=== PATIENT | female | born 1965 | race Caucasian/White ===

== ENCOUNTER 2024-01-05 06:33 | Day surgery (SDC) | payer OTHER, SELFPAY ==
[2023-12-25 09:01] VITALS: BMI 31.9
[2023-12-25 10:23] LABS: Hematocrit 37.8 % (37.0-47.0); Hemoglobin 13.2 g/dL (12.0-16.0); Mean Corp Hgb Conc. 34.9 g/dL (33.0-37.0); Mean Corpuscular Hgb 30.1 pg (27.0-31.0); Mean Corpuscular Volume 86.3 fL (81.0-99.0); Mean Platelet Volume 11.5 fL (7.4-10.4); Platelet Count 281 10^3/uL (130-400); Red Blood Cell Count 4.38 10^6/uL (4.20-5.40); White Blood Cell Count 9.3 10^3/uL (4.8-10.8)
[2023-12-25 10:46] LABS: Blood Urea Nitrogen 12 mg/dl (7-17); Calcium 9.7 mg/dl (8.4-10.2); Carbon Dioxide 26 mmol/L (22-30); Chloride 102 mmol/L (98-107); Estimated Creatinine Clearance 101 ml/min; Glucose 130 mg/dl (70-99); Potassium 4.4 mmol/L (3.5-5.1); Sodium 140 mmol/L (135-145); eGFR > 60.00
[2024-01-05] VITALS (17 sets, daily range): BP systolic 96–136; BP diastolic 71–90; BMI 31.9
--- NOTE | 2024-01-05 07:24 | HP.FOC2 ---
Focused History & Physical
Chief Complaint
HPI:
Chief Complaint: Dysphagia, GERD
HPI / Indication for Planned Procedure: Patient is a 58-year-old female recently seen in outpatient surgical evaluation secondary to symptomatic hiatal hernia. She has a longstanding history of having followed her hiatal hernia expectantly over the
years. Progressive dysphagia recently particularly with more solid foods, early satiety, postprandial fullness and epigastric substernal chest pain with radiation to the left scapular region. Cardiac evaluation unremarkable. CT chest abdomen has
confirmed the presence of a large type III paraesophageal hernia with approximately 80% of the stomach within the chest and typical organoaxial positioning. Upper GI fluoroscopy demonstrating normal esophageal mucosa without mass compression or
thickening. No reflux. Mild delayed gastric emptying secondary to large hiatal hernia with intrathoracic stomach.
Relevant Past Medical History: Other (Neuropathy, aoy-axvlcdf-axfokldxh diabetes mellitus, arthritis)
Relevant Social History: Negative
Relevant Family History: Negative
Relevant Past Surgical History: Positive for ( x 2 cholecystectomy, left foot surgery, tonsils)
Review of Systems
Review of Pertinent Systems: All Systems Negative
Medication
See Medication form for detailed medications: Yes
Medication List (including Herbals & OTC):
atorvastatin 10 mg tablet (Lipitor) 10 mg PO DAILY 12/30/23
celecoxib 200 mg capsule (Celebrex) 200 mg PO HS 12/30/23
duloxetine 30 mg capsule,delayed release (Cymbalta) 30 mg PO HS 12/30/23
glipizide 5 mg tablet 5 mg PO BID 12/30/23
lisinopril 2.5 mg tablet 2.5 mg PO DAILY 12/30/23
metformin 1,000 mg tablet 1,000 mg PO BID 12/30/23
omeprazole 20 mg capsule,delayed release 20 mg PO DAILY 12/30/23
Medications Reviewed: Yes
Allergies and Reactions
Patient has Allergies: Yes
Noted Allergies and Reactions:
Allergy/AdvReac Type Severity Reaction Status Date / Time
aspirin Allergy Hives, Verified 04/02/24 10:48
Swelling
Penicillins Allergy Hives, Verified 12/30/23 10:48
Swelling
Sulfa (Sulfonamide Allergy Hives, Verified 12/30/23 10:48
Antibiotics) Swelling
hydromorphone [From Dilaudid] AdvReac Severe Verified 12/30/23 11:08
headache
morphine AdvReac Uncontrollable Verified 12/30/23 11:08
Crying,
Emotional
Pertinent Physical Exam
All Other Systems: Negative
Head/Neck: Normal
Lungs: Normal
Heart: Normal
Abdomen: Normal
Extremities: Normal
Neurological: Normal
Diagnosis / Assessment
58-year-old female presenting for scheduled operative correction symptomatic, large type III paraesophageal hernia
Plan / Procedure
Robotic assisted laparoscopic paraesophageal hernia repair with fundoplication, possible resorbable mesh and intraoperative EGD
Anesthesia/Sedation to be done by Anesthesia Provider: Yes
[2024-01-05 08:59] LABS: Glucose - Point of Care 137 mg/dl (70-99)
[2024-01-05] MEDS: NORMOSOL-R 1000 IV (08:59)
--- NOTE | 2024-01-05 10:44 | W.SUR.PREOP ---
Pre-Operative Surgical Note
-
I have examined this patient prior to the performance of the scheduled procedure.
The patient's condition is unchanged from the time of the current History and
Physical and the patient is able to undergo the scheduled procedure.
[2024-01-05 10:54] LABS: Glucose - Point of Care 89 mg/dl (70-99)
[2024-01-05 13:49] LABS: Glucose - Point of Care 183 mg/dl (70-99)
[2024-01-05 15:58] LABS: Glucose - Point of Care 225 mg/dl (70-99)
[2024-01-05 17:19] LABS: Glucose - Point of Care 208 mg/dl (70-99)
--- NOTE | 2024-01-05 17:23 | W.IMMPOSTOP ---
Addendum entered and electronically signed by Kenneth Crow MD 01/12/24 15:51:
#[id number]
Original Note:
Surgical Immed Post Op Note
-
Primary Surgeon: Mignon
Assisting Surgeon: BASILIO Iraheta
Pre-op Diagnosis: Symptomatic large type III paraesophageal hernia
Post-op Diagnosis: Giant type IV paraesophageal hernia
Procedure Performed: Robotic assisted laparoscopic repair paraesophageal hernia with fundoplication; intraoperative EGD
Anesthesia Type: GETA +1% lidocaine with epi/0.25% Marcaine
Specimen / Cultures: None
Estimated Blood Loss: 20 mL
Complications: None immediate
Operative Findings: Large type IV paraesophageal hernia containing entire stomach within the intrathoracic space predominantly in the left chest. Large posterior fat pad with pancreatic capsule immediately adjacent. IVC immediately adjacent to the
border of the right karen required mobilization for crural closure. Hiatal hernia sac and contents all completely reduced. Anterior hernia sac excised and discarded. Extensive mediastinal esophageal mobilization circumferentially up to the level
of the right mainstem bronchus and beyond pulmonary veins. Right/posterior vagus clearly identified and preserved. Left/anterior vagus not definitively identified. Overall defect closed with 6 interrupted 0 silk stitches posteriorly, 2 right
anterior lateral 0 silk stitches; did not utilize pledgets or mesh given proximity of IVC to right sided crural closure. Toupee fundoplication. Crural closure and wrap nicely accommodated 54 [place] bougie. Intraoperative EGD confirming
well-formed toupee fundoplication, no iatrogenic injury from esophageal mobilization, chronic gastritis and nodularity from chronicity of hiatal hernia and organoaxial volvulus of the stomach. No active ulcerations or bleeding though.
[2024-01-05] MEDS: SUBLIMAZE 25 MCG IV ×2 (18:01→18:27)
[2024-01-05] MEDS: NOVOLOG vial 1 UNITS SC (18:11)
[2024-01-05] MEDS: SUBLIMAZE 50 MCG IV (18:18)
--- NOTE | 2024-01-05 19:30 | PTCARENOTE ---
Addendum entered by Lolita Hansen RN 01/06/24 05:52:
ivf infusing as ordered. brendon draingig,
Original Note:
Pt arrived from OR. Pt aaox3, cooperative, drowsy at times. c/o pain and mild nausuea.mrf
--- NOTE | 2024-01-05 19:30 | PTCARENOTE ---
Ot arrived from PACU
[2024-01-05] MEDS: NSS 1000 IV (20:47)
[2024-01-05 21:37] LABS: Glucose - Point of Care 186 mg/dl (70-99)
[2024-01-05] MEDS: COMPAZINE 5 MG IV (22:05)
[2024-01-05] MEDS: DILAUDID 0.5 MG IV (22:06)
[2024-01-05] MEDS: CYMBALTA DELAYED RELEASE 30 MG PO (22:35)
[2024-01-06 00:15] LABS: Glucose - Point of Care 154 mg/dl (70-99)
[2024-01-06] MEDS: ZOFRAN IV (02:08)
[2024-01-06 03:35] VITALS: BP 136/84
[2024-01-06] MEDS: DILAUDID 0.5 MG IV (04:44)
[2024-01-06] MEDS: ZOFRAN 4 MG IV ×4 (04:44→23:00)
[2024-01-06 05:53] LABS: Hematocrit 34.8 % (37.0-47.0); Hemoglobin 12.2 g/dL (12.0-16.0); Mean Corp Hgb Conc. 35.1 g/dL (33.0-37.0); Mean Corpuscular Hgb 30.3 pg (27.0-31.0); Mean Corpuscular Volume 86.4 fL (81.0-99.0); Mean Platelet Volume 11.2 fL (7.4-10.4); Platelet Count 237 10^3/uL (130-400); Red Blood Cell Count 4.03 10^6/uL (4.20-5.40); Red Cell Dist. Width 13.3 % (11.5-14.5); White Blood Cell Count 12.6 10^3/uL (4.8-10.8)
[2024-01-06 06:10] LABS: Glucose - Point of Care 124 mg/dl (70-99)
[2024-01-06 06:26] LABS: Blood Urea Nitrogen 11 mg/dl (7-17); Calcium 8.3 mg/dl (8.4-10.2); Carbon Dioxide 25 mmol/L (22-30); Chloride 102 mmol/L (98-107); Estimated Creatinine Clearance 101 ml/min; Glucose 130 mg/dl (70-99); Potassium 3.9 mmol/L (3.5-5.1); Sodium 136 mmol/L (135-145); eGFR > 60.00
[2024-01-06] MEDS: NSS 1000 IV ×3 (06:28→22:55)
[2024-01-06 07:25] VITALS: BP 126/80
[2024-01-06] MEDS: NSS (PRESERVATIVE FREE) 10 ML IV (07:25)
[2024-01-06] MEDS: PROTONIX IV 40 MG IV (07:25)
--- NOTE | 2024-01-06 08:31 | W.PN.GS2 ---
Today's Communication / Plan
-
-- Trial of clears
-- Pain control: Tylenol, Toradol, IV Dilaudid PRN, would transition to PO depending on dietary tolerance
-- Home BP and statin ordered, DM meds on hold pending dietary tolerance, ISS
-- OOB/ambulate, needs IS
Assessment / Plan
-
Patient is a 58 yo F POD#1 s/p RAL PEH repair with Toupet fundoplication and intra-op EGD
Recovering well overall. No postoperative concerns.
-- Trial of clears
-- Pain control: Tylenol, Toradol, IV Dilaudid PRN, would transition to PO depending on dietary tolerance
-- Maintain IVF
-- Home BP and statin ordered, DM meds on hold pending dietary tolerance, ISS
-- Lovenox for DVT
-- PPI ordered for GI
-- OOB/ambulate, needs IS
Subjective Data
-
Date of Service: January 06, 2024
Reports lower abdominal bloating and LEFT shoulder discomfort. Pain overall well-controlled with medications. Reports nausea, no regurgitation or vomiting, tolerating some ice chips. No dizziness or lightheadedness. No fevers or chills. Minimal
ambulation. Voiding.
Objective Data
-
Intake and Output
01/05/24 01/06/24 01/07/24
06:59 06:59 06:59
Intake Total 1320 / 1320
Output Total 955 / 955
Balance 365 / 365
Intake:
Oral fluids 120 / 120
IV fluids (Total) 1200 / 1200
Output:
Drain Output (Total) 5 / 5
Left David-Back 5 /
Urine, Marroquin 950 / 950
Vital Signs
Temp Pulse Resp BP Pulse Ox
98.3 F 105 16 136/84 94
01/06/24 03:35 04/09/24 03:35 01/06/24 03:35 01/06/24 03:35 01/06/24 03:35
Lab Results
01/06/24 05:29
01/06/24 05:29
Calcium 8.3 mg/dl (8.4-10.2) L 01/06/24 05:29
Physical Exam
-
Gen: NAD
Abd: soft, mild tenderness, ND/obese, non-peritoneal, incisions c/d/i - no erythema, ecchymosis or drainage, LANDON minimal serosang
--- NOTE | 2024-01-06 10:26 | CM ---
CM following re: discharge planning.
Reviewed pt's chart, met with pt.
Pt is a 58 year old female, admitted with primary dx of POD#1 s/p RAL PEH repair with Toupet fundoplication and intra-op EGD. Pt reports she is doing much better.
Pt reports she lives with in a 2SH, 2 steps to enter, has 2 supportive children. Pt described herself as independent in all areas [employer],drives, works. No DME, VN or SNF history.
PCP: Sherin Jeffery
Pharmacy: [facility]
D/C plan: home with anticipated no needs. to transport at discharge.
CM will follow with discharge plan updates as hospitalization progresses
[2024-01-06 11:07] LABS: Glucose - Point of Care 132 mg/dl (70-99)
[2024-01-06 11:08] VITALS: BP 137/90
--- NOTE | 2024-01-06 11:34 | PTCARENOTE ---
Patient voided 150mls clear dark yellow urine in bathroom.
--- NOTE | 2024-01-06 14:17 | W.PN.SURGUPD ---
Surgical Update
Surgical Update
pt seen and examined
post op epigastric, LUQ and left scapular pain but manageable
no nausea
AF tachycardia 90-110s noted post op
ABD: soft, ND, mild TTP at incisions, no R/R/G
LANDON with light SSF
reviewed with pt operation in detail
overall expected initial post op course
EKG confirms sinus tachycardia - mediastinal dissection well into chest
clear liquid diet
multimodal nonnarcotic pain medication options
zofran ATC x 36hr post op
ambulate
[2024-01-06] MEDS: OFIRMEV 100 IV (14:23)
[2024-01-06 15:05] VITALS: BP 138/85
[2024-01-06] MEDS: TORADOL 10 MG IV ×2 (15:09→22:51)
[2024-01-06 17:08] LABS: Glucose - Point of Care 137 mg/dl (70-99)
[2024-01-06] MEDS: LOVENOX 40 MG SC (17:11)
[2024-01-06 19:00] VITALS: BP 130/76
[2024-01-06] MEDS: CYMBALTA DELAYED RELEASE 30 MG PO (21:07)
[2024-01-06 23:14] VITALS: BP 141/79
[2024-01-07 04:58] LABS: Hematocrit 32.7 % (37.0-47.0); Mean Corp Hgb Conc. 33.6 g/dL (33.0-37.0); Mean Corpuscular Volume 89.1 fL (81.0-99.0); Mean Platelet Volume 11.1 fL (7.4-10.4); Platelet Count 199 10^3/uL (130-400); Red Blood Cell Count 3.67 10^6/uL (4.20-5.40); Red Cell Dist. Width 13.1 % (11.5-14.5); White Blood Cell Count 9.9 10^3/uL (4.8-10.8)
[2024-01-07] MEDS: ZOFRAN IV (05:08)
[2024-01-07 05:20] LABS: Blood Urea Nitrogen 7 mg/dl (7-17); Calcium 8.2 mg/dl (8.4-10.2); Carbon Dioxide 24 mmol/L (22-30); Chloride 107 mmol/L (98-107); Estimated Creatinine Clearance 101 ml/min; Glucose 126 mg/dl (70-99); Potassium 3.9 mmol/L (3.5-5.1); Sodium 135 mmol/L (135-145); eGFR > 60.00
[2024-01-07] MEDS: TORADOL 10 MG IV (06:43)
[2024-01-07] MEDS: COMPAZINE 5 MG IV (06:48)
[2024-01-07 07:05] VITALS: BP 137/82
--- NOTE | 2024-01-07 07:41 | W.PN.GS2 ---
Today's Communication / Plan
-
`
Assessment / Plan
-
Patient is a 58 yo F POD#2 s/p RAL PEH repair with Toupet fundoplication and intra-op EGD
AF - low grade sinus tachy -stable
doing well post op
Plan: full liquid diet
stop IVFs
Pain control: PO Tylenol, IV Toradol,
Home BP and statin ordered, DM meds on hold pending dietary tolerance, ISS
Lovenox for DVT
PPI ordered for GI
OOB/ambulate, needs IS
dispo possible d/c in PM vs tomorrow pending improvement in mild nausea and PO intake
LANDON will be removed prior to d/c
Subjective Data
-
Date of Service: January 07, 2024
pt seen and examined
darius clears
+flatus, no BM
post op pain controlled
LUNDY this AM - taking Ofirmev and coffee
mild nausea at times, no dry heaves, no vomiting
Objective Data
-
Intake and Output
01/06/24 01/07/24 01/08/24
06:59 06:59 06:59
Intake Total 1320 / 1320 3100 / 3100
Output Total 955 / 955 175 / 175
Balance 365 / 365 2925 / 2925
Intake:
Oral fluids 120 / 120 600 / 600
IV fluids (Total) 1200 / 1200 2400 / 2400
IV piggybacks 100 / 100
Output:
Drain Output (Total)
Left David-Back
Urine, Marroquin 950 / 950
Urine, Voided 150 / 150
Other:
Number of approximated MODERATE 3
amounts of urine
Vital Signs
Temp Pulse Resp BP Pulse Ox
98.2 F 100 16 141/79 92
01/06/24 23:14 01/06/24 23:14 01/06/24 23:14 01/06/24 23:14 01/06/24 23:14
Lab Results
01/07/24 04:34
01/07/24 04:34
Calcium 8.2 mg/dl (8.4-10.2) L 01/07/24 04:34
Physical Exam
-
NAD AAOx3
ABD: soft, ND, mild TTP at incision sites
incisions with glue dressings
LANDON with light SSF
[2024-01-07] MEDS: ZESTRIL 2.5 MG PO (08:27)
[2024-01-07] MEDS: PROTONIX IV 40 MG IV (08:27)
[2024-01-07] MEDS: LIPITOR 10 MG PO (08:27)
[2024-01-07] MEDS: NSS (PRESERVATIVE FREE) 10 ML IV (08:28)
[2024-01-07 08:39] LABS: Glucose - Point of Care 197 mg/dl (70-99)
[2024-01-07 10:07] VITALS: BP 149/85
[2024-01-07 11:42] LABS: Glucose - Point of Care 140 mg/dl (70-99)
--- NOTE | 2024-01-07 14:02 | W.PN.SURGUPD ---
Surgical Update
Surgical Update
pt doing well
darius fulls
feels comfortable with d/c home
LANDON removed
d/c instructions reviewed
scripts sent in
--- NOTE | 2024-01-07 14:03 | W.DS.TRANS ---
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
-
Discharge Instructions:
Sleep Apnea Risk Low
Discharge Diagnosis/Procedures Paraesophageal hernia. Robotic assisted
laparoscopic repair paraesophageal hernia with
toupee fundoplication
Additional Diets Continue full liquid diet for today. Over the
next 1 to 2 days advance to post fundoplication
diet as per dietary handout provided prior to
surgery. Take care to continue with smaller
portion sizes and utilize supplements. Avoid
carbonation and drinking through straws. Take
time to chew and swallow food with a bit smaller
bite sizes.
Activity No strenuous activity
Additional Activity No lifting over 15 pounds
Driving Restrictions No driving 3 to 4 days or if using narcotics
Bathing Restrictions OK to Shower
Wound Care Glue at surgical sites typically peels off in 2
to 3 weeks
Instructions:
Stand-Alone Forms:
Changes to Home Medications: No
Discharge Medications:
DC Medications w/original date entered in [employer]
atorvastatin 10 mg tablet (Lipitor) 10 mg PO DAILY 12/30/23
celecoxib 200 mg capsule (Celebrex) 200 mg PO HS 12/30/23
duloxetine 30 mg capsule,delayed release (Cymbalta) 30 mg PO HS 12/30/23
glipizide 5 mg tablet 5 mg PO BID 12/30/23
lisinopril 2.5 mg tablet 2.5 mg PO DAILY 12/30/23
metformin 1,000 mg tablet 1,000 mg PO BID 12/30/23
omeprazole 20 mg capsule,delayed release 20 mg PO DAILY 12/30/23
vitamin B12 0.5 mg-folic acid 1 mg tablet 1 tab PO DAILY 01/05/24
acetaminophen 325 mg tablet 650 mg (2 x 325 mg) PO Q4HPRN PRN mild pain #1 tab 01/07/24
ondansetron 4 mg disintegrating tablet 4 mg PO Q8HPRN PRN nausea/vomiting #14 tabs 01/07/24
tramadol 50 mg tablet 25 - 50 mg (0.5 - 1 x 50 mg) PO Q6HPRN PRN severe pain/breakthrough pain #7 tabs 01/07/24
Home Medication Changes
Pending Results: No
[2024-01-07] MEDS: TYLENOL ORAL SOLUTION 650 MG PO (14:14)
[2024-01-07] MEDS: ZOFRAN 4 MG IV (14:14)
[2024-01-07 14:50] VITALS: BP 134/82
--- NOTE | 2024-01-07 15:12 | CM ---
Patient has been medically cleared for discharge to home with no additional skilled services. Patient has arranged for transport home.
--- NOTE | 2024-01-07 15:58 | W.DCSUMMARY ---
Discharge Summary
Discharge Data
Date of Admission: 01/05/24
Date of Discharge: 01/07/24
-
Pending Results: No
Hospital Course
Patient is a 58-year-old female with a giant type III/type IV paraesophageal hernia who presented on for scheduled operative correction. She underwent a robotic assisted laparoscopic repair paraesophageal hernia with fundoplication with
intraoperative EGD. See operative report for full details. Operative findings confirmed the presence of a large type IV paraesophageal hernia containing entire stomach, large posterior fat pad and likely pancreatic capsule immediately approaching
the fascial defect.
She tolerated procedure well was transferred to the postoperative surgical floors for monitoring. Postoperative day #1 she had some low-grade sinus tachycardia but adequate pain control, mild reactive leukocytosis. She was started on clear liquids
for comfort which she tolerated. Mild nausea was managed with Zofran ATC. On postoperative day 2 her sinus tachycardia was improving, increased ability to ambulate, voiding, passing flatus and tolerated full liquids. She was deemed stable for
discharge with outpatient surgical follow-up with myself. Her surgical LANDON was removed prior to discharge.
Discharge Plan
-
Patient Disposition: Home (Routine Discharge)
Discharge Diagnosis/Procedures: Paraesophageal hernia. Robotic assisted laparoscopic repair paraesophageal hernia with toupee fundoplication
Condition: Good
Additional Diets: Continue full liquid diet for today. Over the next 1 to 2 days advance to post fundoplication diet as per dietary handout provided prior to surgery. Take care to continue with smaller portion sizes and utilize supplements. Avoid
carbonation and drinking through straws. Take time to chew and swallow food with a bit smaller bite sizes.
Activity: No strenuous activity
Additional Activity: No lifting over 15 pounds
Driving Restrictions: No driving 3 to 4 days or if using narcotics
Bathing Restrictions: OK to Shower
Wound Care: Glue at surgical sites typically peels off in 2 to 3 weeks
Activity Restrictions/Additional Instructions:
Call if fever >101 �F, worsening abdominal pains, persistent nausea with vomiting, trouble swallowing, any medical concerns or questions
Referrals:
Kenneth Crow MD [Active] - in two weeks
Additional Discharge Medication Instructions: monitor accu checks as home, resume diabetes medications as diet intake increases
Prescriptions:
New
acetaminophen [acetaminophen] 325 mg tablet
650 mg PO Q4HPRN PRN (Reason: mild pain) Qty: 1 0RF
tramadol 50 mg tablet
25 - 50 mg PO Q6HPRN PRN (Reason: severe pain/breakthrough pain) Qty: 7 0RF
ondansetron 4 mg tablet,disintegrating
4 mg PO Q8HPRN PRN (Reason: nausea/vomiting) Qty: 14 0RF
Continued
celecoxib [Celebrex] 200 mg Capsule
200 mg PO HS
atorvastatin [Lipitor] 10 mg Tablet
10 mg PO DAILY
metformin 1,000 mg Tablet
1,000 mg PO BID
omeprazole 20 mg Capsule,Delayed Release(Dr/Ec)
20 mg PO DAILY
lisinopril 2.5 mg Tablet
2.5 mg PO DAILY
glipizide 5 mg Tablet
5 mg PO BID
duloxetine [Cymbalta] 30 mg Capsule,Delayed Release(Dr/Ec)
30 mg PO HS
vitamin [id number] acid 0.5-1 mg Tablet
1 tab PO DAILY
Discharge Orders:
Discharge Patient (As Directed); Ordered 01/07/24
Ordered By: Kenneth Crow
Discharge Date and Time
Print Language: SPANISH
== END 2024-01-07 16:15 | disposition home or self-care (01) ==
LOC: SDS 06:33
PROVIDERS: ATTENDING PHYSICIAN Surgery; FAMILY PHYSICIAN Family Medicine; OTHER PHYSICIAN Internal Medicine Interventional Cardiology
DX: K44.9 Diaphragmatic hernia without obstruction or gangrene (principal); E11.40 Type 2 diabetes mellitus with diabetic neuropathy, unspecified
CPT/HCPCS: 43281; 36415; 80048; 82962; 85027; 93005

== ENCOUNTER → 2024-01-23 07:35 | Outpatient (REF) | payer OTHER, SELFPAY ==
[2024-01-23 08:14] LABS: % Basophils 0.7 % (0-2); % Eosinophils 3.4 % (0-6); % Immature Granulocytes 0.3 % (0-0.5); % Lymphocytes 23.1 % (20.5-51.1); % Monocytes 10.8 % (1.7-9.3); % Neutrophils 61.7 % (42.2-75.2); Absolute Basophils 0.1 10^3/uL (0-0.2); Absolute Eosinophils 0.2 10^3/uL (0-0.7); Absolute Lymphocytes 1.7 10^3/uL (1.2-3.4); Absolute Monocytes 0.8 10^3/uL (0.1-0.6); Absolute Neutrophils 4.4 10^3/uL (1.4-6.5); Hematocrit 39.9 % (37.0-47.0); Hemoglobin 13.9 g/dL (12.0-16.0); Mean Corp Hgb Conc. 34.8 g/dL (33.0-37.0); Mean Corpuscular Hgb 30.3 pg (27.0-31.0); Mean Corpuscular Volume 87.1 fL (81.0-99.0); Mean Platelet Volume 11.3 fL (7.4-10.4); Nucleated Red Blood Cells % 0 %; Platelet Count 362 10^3/uL (130-400); Red Blood Cell Count 4.58 10^6/uL (4.20-5.40); Red Cell Dist. Width 12.8 % (11.5-14.5); White Blood Cell Count 7.1 10^3/uL (4.8-10.8)
[2024-01-23 08:41] LABS: ALT (SGPT) 28 U/L (0-35); AST (SGOT) 25 U/L (14-36); Albumin 4.7 g/dl (3.5-5.0); Alkaline Phosphatase 91 U/L (38-126); Blood Urea Nitrogen 16 mg/dl (7-17); Calcium 9.8 mg/dl (8.4-10.2); Carbon Dioxide 26 mmol/L (22-30); Chloride 99 mmol/L (98-107); Glucose 190 mg/dl (70-99); Potassium 4.2 mmol/L (3.5-5.1); Sodium 134 mmol/L (135-145); Total Bilirubin 1.3 mg/dl (0.2-1.3); Total Protein 7.3 g/dl (6.3-8.2); eGFR > 60.00
== END ==
LOC: REG 07:35
PROVIDERS: ATTENDING PHYSICIAN Surgery; FAMILY PHYSICIAN Family Medicine
DX: Z98.890 Other specified postprocedural states (principal); Z87.19 Personal history of other diseases of the digestive system; R11.0 Nausea; R10.13 Epigastric pain
CPT/HCPCS: 36415; 71046; 80053; 85025

== ENCOUNTER → 2024-04-05 10:58 | Outpatient (REF) | payer OTHER, SELFPAY | LOC: RAD 10:58 | PROVIDERS: ATTENDING PHYSICIAN Surgery; FAMILY PHYSICIAN Family Medicine | DX: Z98.890 Other specified postprocedural states (principal); Z87.19 Personal history of other diseases of the digestive system | CPT/HCPCS: 74246 ==